=== PATIENT | female | born 1965 | race Caucasian/White ===

== ENCOUNTER 2023-08-13 03:50 | Outpatient (CLI) | payer BC, SELFPAY ==
[2023-08-13 18:05] LABS: TSH 1.87 uIU/mL (0.36-3.74)
== END 2023-08-13 03:51 | disposition home or self-care (01) ==
LOC: LBO 03:51
PROVIDERS: PCP Nurse Practitioner Family; Visit Provider Internal Medicine
DX: E03.9 Hypothyroidism, unspecified (principal)
CPT/HCPCS: 36415; 84443

== ENCOUNTER 2024-09-01 03:04 | Outpatient (CLI) | payer BC, SELFPAY ==
[2024-09-01 09:44] LABS: ALT 45 U/L (14-59); AST 17 U/L (15-37); Alkaline Phosphatase 69 U/L (46-116); Anion Gap 10.9 mmol/L (3-11); BUN 20 mg/dL (7-18); Bilirubin, Total 0.58 mg/dL (0.2-1.0); CO2 28.1 mmol/L (21.0-32.0); Calcium 9.1 mg/dL (8.5-10.1); Calculated LDL 148 mg/dL (<100); Chloride 104 mmol/L (98-107); Cholesterol 232 mg/dL (<200); Estimated GFR 64.49 (mL/min/1.73m2); Glucose 111 mg/dL (74-106); HDL Cholesterol 49 mg/dL (40-60); Potassium 4.4 mmol/L (3.5-5.1); Sodium 143 mmol/L (136-145); TSH (W/Ref FT4) 6.65 uIU/mL (0.36-3.74); Total Protein 7.7 g/dL (6.4-8.2); Triglyceride 175 mg/dL (<150)
[2024-09-01 10:54] LABS: FREE T4 1.05 ng/dL (0.76-1.46)
[2024-09-01 20:11] LABS: HIV-1/2 Ag & Ab Screen Negative (Negative)
[2024-09-01 20:49] LABS: Hepatitis C Ab w Rflx HCV PCR Negative (Negative)
[2024-09-02 19:01] LABS: Lab Add On Test DONE
[2024-09-03 18:00] LABS: Thyroglobulin Antibody <15 U/mL (<=60)
== END 2024-09-01 03:05 | disposition home or self-care (01) ==
PROVIDERS: PCP Nurse Practitioner Family; Visit Provider Nurse Practitioner Family
DX: Z11.59 Encounter for screening for other viral diseases (principal); Z11.4 Encounter for screening for human immunodeficiency virus [HIV]; E89.0 Postprocedural hypothyroidism; Z13.220 Encounter for screening for lipoid disorders; R73.9 Hyperglycemia, unspecified; R73.03 Prediabetes
CPT/HCPCS: 36415; 80053; 80061; 86803; 87389; 84439; 84443; 86800

== ENCOUNTER 2024-10-17 01:53 | Outpatient (CLI) | payer BC, SELFPAY ==
--- OUTSIDE RECORDS SUMMARY | 2024-10-17 02:00 | XMS_ITS | Encounter Summary ---
Author Organization [facility] [place] [address] Care Team Providers Care Nonprofit Manager Name Role Phone None Primary Care Provider Unavailabl e Encounter Details Date Type Department Care Team (Latest Contact Info) Description 02/23/2023 Travel Social History Tobacco Use Types Packs/Day Years Used Date Smoking Tobacco: Former Cigarettes Q uit: 1998 Smokeless Tobacco: Never Alcohol Use Standard Drinks/Week Comments Yes 0 (1 standard drink = 0.6 oz pur e alcohol) nightly glass of wine Sex and Gender Information Value Date Recorded Sex Assigned at Not on file Gender Identity Not on file Sexual Orientation Not on file documented as of this encounter Plan of Treatment Not on file documented as of this encounter Visit Diagnoses Not on filedocumented in this encounter Care Teams Nonprofit Manager Relationship Specialty Start Date End Date None None PCP - General 12/23/20 07/10/23 documented as of this encounter
--- OUTSIDE RECORDS SUMMARY | 2024-10-17 02:00 | XMS_ITS | Encounter Summary ---
Author Organization [facility] [place] [address] Care Team Providers Care Commercial Ocean Clammer Name Role Phone Clint Alva DNP Primary Care Provider [phone] Reason for Visit * Reason Comments Medication Refill Encounter Details Date Type Department Care Team (Late st Contact Info) Description 02/22/2024 Refill [place] [address] Pako Venegas MD [facility] [place] [address] Social History Tobacco Use Types Packs/Day Years [...] on filedocumented in this encounter Care Teams Commercial Ocean Clammer Relationship Specialty Start Date End Date Clint Alva DNP [address] [place], [place] [address] PCP - General Family Medicine 07/11/23 documented as of this encounter
--- OUTSIDE RECORDS SUMMARY | 2024-10-17 02:00 | XMS_ITS | Encounter Summary ---
Author Organization [facility] [place] [address] Care Team Providers Care Electrician Helper Powerhouse Name Role Phone None Primary Care Provider Unavailabl e Encounter Details Date Type Department Care Team (Late st Contact Info) Description 07/12/2021 Telephone [place] [phone] Mary Degroot RN Social History Tobacco Use Types Packs/Day Years [...] on file documented as of this encounter Miscellaneous Notes * Telephone Encounter - Mary Degroot RN - 07/12/2021 4:23 PM EDT Electronically routed lab order to [facility] per pt request to fax number [phone]. documented in this encounter Plan of Treatment Not on file documented as of this encounter Visit Diagnoses Not on filedocumented in this encounter Care Teams Electrician Helper Powerhouse Relationship Specialty Start Date End Date None None PCP - General 12/23/20 07/10/23 documented as of this encounter
--- OUTSIDE RECORDS SUMMARY | 2024-10-17 02:00 | XMS_ITS | Clinical Summary ---
Author Organization [facility] [place] [address] Care Team Providers Care Auditor Internal Name Role Phone NidaClint moran Bintakiana JAMEE Primary Care Provider [phone] Allergies No known active allergies Medications Medication Sig Dispensed Refills Start Date End Date Status multivitamin Tablet, Chewable Take 1 tablet by mouth as needed. Active lactobacillus rhamnosus, GG, (CULTURELLE) 10 billion cell Capsule Take 1 capsule by mouth daily. Active levothyroxine (Synthroid) 100 mcg tablet Take 1 tablet by mouth daily. 90 tablet 3 02/28/2023 Active Active Problems No known active problems Family History Medical History Relation Comments Thyroid Disease Sister Relation Status Comments Sister Social History Tobacco Use Types Packs/Day Years Used Date Smoking Tobacco: Former Cigarettes Q uit: 1998 Smokeless Tobacco: Never Alcohol Use Standard Drinks/Week Comments Yes 0 (1 standard drink = 0.6 oz pur e alcohol) nightly glass of wine Sex and Gender Information Value Date Recorded Sex Assigned at Not on file Gender Identity Not on file Sexual Orientation Not on file Last Filed Vital Signs Vital Sign Reading Time Taken Comments Blood Pressure 142/73 02/23/2023 1:17 PM EDT Pulse 88 02/23/2023 1:17 PM EDT Temperature 36 ??C (96.8 ??F) 02/23/2023 1:17 PM EDT Respiratory Rate 99 02/23/2023 1:17 PM EDT Oxygen Saturation 100% 12/23/2020 10:55 AM EST Inhaled Oxygen Concentration - - Weight 80.5 kg (177 lb 6.4 oz) 02/23/2023 1:17 P M EDT Height 160 cm (5' 3) 02/23/2023 1:17 PM EDT Body Mass Index 31.42 02/23/2023 1:17 PM EDT Plan of Treatment Health Maintenance Due Date Last Done Comments CT Colonography 1964 Colonoscopy 1964 Colorectal Cancer Screening 1964 FIT DNA 1964 FIT 1964 Sigmoidoscopy (10 year) with FIT yearly 1964 Sigmoidoscopy 1964 HIV screen 1982 Hepatitis C Screening 1982 Lipid Screening 1982 Tetanus/Diphtheria/Pertussis Vaccines (1 - Tdap) 05/14 HPV test 1994 PAP Smear 1994 Breast Cancer Share Decision Needed 2004 Breast Cancer screening 2004 Diabetes Screening (HgbA1C or Glucose) 2004 Zoster vaccine (1 of 2) 2014 Advance Directive 2019 Covid-19 Vaccine (1 - season) 2024 Influenza (Flu) vaccine (1 o f 1 - Influenza standard series) 06/22/2024 Care Teams Auditor Internal Relationship Specialty Start Date End Date Clint Alva DNP [address] [place] [address] PCP - General Family Medicine 07/11/23
--- OUTSIDE RECORDS SUMMARY | 2024-10-17 02:00 | XMS_ITS | Encounter Summary ---
Author Organization [facility] Address [address] [place] [address] Care Team Providers Care Operations Expert Name Role Phone Unavailable Primary Care Provider Unavailabl e Encounter Details Date Type Department Care Team (Late st Contact Info) Description 09/01/2024 Lab Requisition [facility] Pathology & Laboratory Medicine - [facility] [address] [place] [address] Outr Resulting Lab, Provider Social History Tobacco Use Types Packs/Day Years Used Date Smoking Tobacco: Never Assessed Comments Unknown Sex and Gender Information Value Date Recorded Sex Assigned at Not on file Legal Sex Female 12:25 EST Gender Identity Not on file Sexual Orientation Not on file documented as of this encounter Plan of Treatment Not on file documented as of this encounter Procedures Procedure Name Priority Date/Time Associated Diagnosis Comments HIV 1/2 ANTIGEN AND ANTIBODY, 4TH GENERATION Routine 09/01/2024 9:02 EST documented in this encounter Results * HIV 1/2 ANTIGEN AND ANTIBODY, 4TH GENERATION (09/01/2024 9:02 EST) HIV 1 and 2 Antibody/p24 Antigen, 4th Generation Negative Negative 09/01/2024 20:06 EST [facility] Comment:If acute HIV-1 infec tion is suspected in a high risk patient, submit plasma specimen for HIV-1 RNA quantitation test. Blood VENOUS BLOOD / Unknown 09/01/2024 9:02 EST 09/01/2024 17:17 EST Narrative [facility] - 09/01/2024 20:06 EST Fourth Generation assay performed on the Siemens Centaur XPT. us Provider Outr Resulting Lab IMMUNOLOGY AND SEROL OGY ORDERABLES Final Result [facility] [address] [place] [address] documented in this encounter Visit Diagnoses Not on filedocumented in this encounter
--- OUTSIDE RECORDS SUMMARY | 2024-10-17 02:00 | XMS_ITS | Clinical Summary ---
Author Organization [facility] Address [address] [place] [address] Care Team Providers Care Director Of Infection Prevention Name Role Phone Unavailable Primary Care Provider Unavailabl e Encounters Date Type Department Care Team Description 09/03/2024 Lab Requisition [facility] Pathology & Laboratory [address] [address] Outr Resulting Lab, Provider 09/01/2024 Lab Requisition [facility] Pathology Laboratory [address] [address] Outr Resulting Lab, Provider 09/01/2024 Lab Requisition [facility] Pathology & Laboratory [address] [address] Outr Resulting Lab, Provider from Last 3 Months Social History Tobacco Use Types Packs/Day Years Used Date Smoking Tobacco: Never Assessed Comments Unknown Sex and Gender Information Value Date Recorded Sex Assigned at Not on file Legal Sex Female 12:25 EST Gender Identity Not on file Sexual Orientation Not on file Plan of Treatment Health Maintenance Due Date Last Done Comments COVID-19 Vaccine ( season) 2024 RSV Immunization ( o r 60+ Years) (1 - 1-dose 75+ series) 2039 Hepatitis C Screen Completed 09/01/2024 Procedures Procedure Name Priority Date/Time Associated Diagnosis Comments ANTI THYROGLOBULIN Routine 09/01/2024 9: 02 EST HEPATITIS C AB W REFLEX TO HCV RNA BY PCR Routine 09/01/2024 9:02 EST HIV 1/2 ANTIGEN AND ANTIBODY, 4TH GENERATION Routine 09/01/2024 9:02 EST from Last 3 Months Results * HEPATITIS C AB W REFLEX TO HCV RNA BY PCR (09/01/2024 9:02 EST) Hep C Antibody Negative Negative 09/01/2024 20:44 EST [facility] Blood VENOUS BLOOD / Unknown 09/01/2024 9:02 EST 09/01/2024 17:17 EST us Provider Outr Resulting Lab CHEMISTRY & BLOOD GA S ORDERABLES Final Result [facility] [address] [place] [address] * ANTI THYROGLOBULIN (09/01/2024 9:02 EST) Anti-Thyroglob ulin <15 <=60 U/mL 09/03/2024 17:55 EST [facility] Blood VENOUS BLOOD / Unknown 09/01/2024 9:02 EST 09/03/2024 16:59 EST us Provider Outr Resulting Lab CHEMISTRY & BLOOD GA S ORDERABLES Final Result Performing Organization Address City/[facility]/ZIP Co de Phone Number [facility] [address] [place] [address] * HIV 1/2 ANTIGEN AND ANTIBODY, 4TH GENERATION (09/01/2024 9:02 EST) HIV 1 and 2 Antibody/p24 Antigen, 4th Generation Negative Negative 09/01/2024 20:06 EST [facility] Comment:If acute HIV-1 infec tion is suspected in a high risk patient, submit plasma specimen for HIV-1 RNA quantitation test. Blood VENOUS BLOOD / Unknown 09/01/2024 9:02 EST 09/01/2024 17:17 EST Narrative [facility] - 09/01/2024 20:06 EST Fourth Generation assay performed on the Siemens Centaur XPT. us Provider Outr Resulting Lab IMMUNOLOGY AND SEROL OGY ORDERABLES Final Result [facility] [address] [place], [place] [id number] from Last 3 Months
--- OUTSIDE RECORDS SUMMARY | 2024-10-17 02:00 | XMS_ITS | Encounter Summary ---
Author Organization [place] [address] Care Team Providers Care Shop Girl Name Role Phone None Primary Care Provider Unavailabl e Encounter Details Date Type Department Care Team (Latest Contact Info) Description 02/16/2023 Travel Social History Tobacco Use Types Packs/Day [...] on filedocumented in this encounter Care Teams Shop Girl Relationship Specialty Start Date End Date None None PCP - General 12/23/20 07/10/23 documented as of this encounter
--- OUTSIDE RECORDS SUMMARY | 2024-10-17 02:00 | XMS_ITS | Encounter Summary ---
Author Organization [facility] Address [facility] [place] [address] Care Team Providers Care Life Insurance Underwriter Name Role Phone None Primary Care Provider Unavailabl e Encounter Details Date Type Department Care Team (Late st Contact Info) Description 02/23/2023 1:45 PM EDT Office [place] [phone] Pako Venegas MD [facility] [place] [address] Hypothyroidism, unspecified type; History of thyroid cancer Social History Tobacco Use Types Packs/Day Years [...] on file documented as of this encounter Last Filed Vital Signs Vital Sign Reading Time Taken Comments Blood Pressure 142/73 02/23/2023 1:17 PM EDT Pulse 88 02/23/2023 1:17 PM EDT Temperature 36 ??C (96.8 ??F) 02/23/2023 1:17 PM EDT Respiratory Rate 99 02/23/2023 1:17 PM EDT Oxygen Saturation - - Inhaled Oxygen Concentration - - Weight 80.5 kg (177 lb 6.4 oz) 02/23/2023 1:17 P M EDT Height 160 cm (5' 3) 02/23/2023 1:17 PM EDT Body Mass Index 31.42 02/23/2023 1:17 PM EDT documented in this encounter Progress Notes * Pako Venegas MD - 02/23/2023 1:45 PM EDT Ms. Jaquelin Colunga is an 57 y.o. female who presents in followup for papillary thyroid cancer she has a history of multifocal PTC, status post thyroidectomy in 2013 and on levothyroxine replacement. She did not receive I-131 ablation Last saw me December 2020 Notable events in her thyroid cancer history: - Jul 2014 underwent thyroidectomy for multinodular goiter, FNA of one nodule had shown FLUS prior to this. Path: follicular variant PTC, two foci 0.7 cm and 0.3 cm. No vascular or lymphatic invasion, no ETE, negative margins. No LN submitted - March 2019: thyroid US no evidence of recurrence - December 2020 US neck (Theo): no evidence of recurrence Last Thyroglobulin in 2020 was undetectable Interval history: Today she tells me that she feels well. She has some fatigue but it is generally only at the end ofa long day of work. She denied unexplained weight loss, palpitations, tremors or throat pain. She takes levothyroxine 112 mcg daily Notably she does not have a PCP. She occasionally goes to her local health center when tests are needed Current Outpatient Medications: ??? levothyroxine (Synthroid) 112 mcg Tablet, Take 1 tablet by mouth daily., Disp: 60 tablet, Rfl: 5 has a past medical history of GERD (gastroesophageal reflux disease), Postoperative hypothyroidism,and Thyroid cancer. Past Surgical History: Procedure Laterality Date ??? CHOLECYSTECTOMY ??? HYSTERECTOMY ??? THYROIDECTOMY Physical Exam: Patient Vitals for the past 24 hrs: Temp Pulse Resp BP 02/23/23 1317 36 ??C (96.8 ??F) 88 (!) 99 142/73 General: no acute distress, pleasant, sitting comfortably Face: not round or red Eyes: no lid lag; normal eye movements Nose/mouth: Nose not enlarged, mucous membranes moist Neck: no supraclavicular fat pads; no palpable thyroid nodules or neck masses Lymphatic: no palpable cervical lymph nodes, no palpable supraclavicular lymph nodes Respiratory: symmetrical chest expansion, breathing comfortably on room air without audible wheeze or stridor Musculoskeletal: moving all 4 extremities normally; normal female musculature Skin: normal temperature/texture, no jaundice or pallor visible, well healed surgical scar Neurological: no tremors, normal gait Psychological: alert/oriented to person, place, time; normal affect; memory intact; normal judgement/insight Radiology Studies: Laboratory Data: Component Latest Ref Rng 12/23/2020 Thyroglobulin <=54.9 ng/mL <0.2 Thyroglob Ab 0.0 - 40.0 IU/mL <20.0 TSH 0.27 - 4.20 mcIU/mL 6.44 (H) (H) High Assessment / Plan: 1) history of papillary thyroid cancer -status post thyroidectomy - pT1a, NX, MX No evidence of recurrence given undetectable thyroglobulin and no abnormalities on US including last time it was done in 2020 Consider repeat thyroglobulin check every 2 years in accordance with HUNG guidelines. This could be done by primary care 2) postoperative hypothyroidism TSH goal normal Up to 2.0 as long as excellent response to therapy Discussed that there is probably little benefit at this point to any TSH suppression given that herthyroid cancer recurrence risk is so low. However it is reasonable to keep it normal up To mid normal (around 2.0) range. She does not currently have a PCP. I strongly recommended she establish with one locally. It is appropriate for her to followup with primary care with yearly TSH check and thyroglobulin every other year. I recommend she return to endocrinology if the Thyroglobulin is ever detectable in the future Orders Placed This Encounter Procedures ??? TSH ??? Thyroglobulin Pako Venegas MD Live Out Nannyprocessing analyst Endocrinology Section [facility] \ documented in this encounter Plan of Treatment Not on file documented as of this encounter Procedures Procedure Name Priority Date/Time Associated Diagnosis Comments THYROGLOBULIN Routine 02/23/2023 2:26 PM EDT History of thyroid cancer TSH Routine 02/23/2023 2:26 PM EDT Hypothyroidism, unspecified type documented in this encounter Results * (ABNORMAL) Thyroglobulin (02/23/2023 2:26 PM EDT) Thyroglobulin <0.1(L) 1.3 - 31.8 ng/mL [facility] Comment: INTERPRETIVE INFORMATION: Thyroglobulin, Serum or Plasma Specimens negative for thyroglobulin antibodies (TgAb) are tested for thyroglobulin (Tg) by chemiluminescent immunoassay (MÓNICA) using the Yam[employer] Orient Access DxI method. Specimens with TgAb results above the upper reference limit are tested for Tg by high-performance liquid chromatography-tandem mass spectrometry (LC-MS/MS). Results obtained with different test methods or kits cannot be used interchangeably. Tg results, regardless of concentration, should not be interpreted as absolute evidence for the presence or absence of papillary or follicular thyroid cancer. Tg testing is not recommended for use as a screening procedure to detect the presence of thyroid cancer in the general population. Thyroglob Ab <0.9 0.0 - 4.0 IU/mL [facility] Comment: INTERPRETIVE INFORMATION: Thyroglobulin Antibody A value of 4.0 IU/mL or less indicates a negative result for thyroglobulin antibodies. The Thyroglobulin Antibody assay is being performed using the Yamil Orient Access DxI method. Please note that as 07/19/22 this testing is performed at [facility]. This change is associated with a change in testing method and reference intervals. Values from other methods may not correlate with this method. Please review the results of this test in assocaition with the posted reference intervals. Thyroglobulin by LC-MS/MS Not Applicable 1.3 - 31.8 ng/mL [facility] Comment: INTERPRETIVE INFORMATION: Thyroglobulin by LC-MS/MS, Serum/Plasma Lower limit of detection for Thyroglobulin by LC-MS/MS is 0.5 ng/mL. This test was developed and its performance characteristics determined by [facility]. It has not been cleared or approved by the [place] Food and Drug Administration. This test was performed in a CLIA certified laboratory and is intended for clinical purposes. Performed By: [facility] [address] [place] [id number] [place] Miller: Adelso Toledo MD, PhD Blood 02/23/2023 2:26 PM EDT 02/26/2023 9:16 AM EDT Narrative Resulting Agency Comment Spec In Lab Pako Venegas MD LAB SEND OUT ORDERA BLES Performing Organization Address [facility] Co de Phone Number [facility] [place] [address] * (ABNORMAL) TSH (02/23/2023 2:26 PM EDT) Thyroid Stimulating Hormone 0.13(L) 0.27 - 4.20 mcIU/mL [facility] Comment: Reference Interval (mcIU/mL): Females: ??First Trimester: 0.23-3.88 ??Second Trimester: 0.22-3.90 ??Third Trimester: 0.44-4.66 Blood 02/23/2023 2:26 PM EDT 02/23/2023 2:31 PM EDT Narrative Resulting Agency Comment Spec In Lab Pako Venegas MD CHEMISTRY ORDERABLE S Performing Organization Address [facility] Co de Phone Number [facility] [place] [address] documented in this encounter Visit Diagnoses Diagnosis Hypothyroidism, unspecified type History of thyroid cancer Personal history of malignant neoplasm of thyroid documented in this encounter Care Teams Life Insurance Underwriter Relationship Specialty Start Date End Date None None PCP - General 12/23/20 07/10/23 documented as of this encounter
--- OUTSIDE RECORDS SUMMARY | 2024-10-17 02:00 | XMS_ITS | Encounter Summary ---
Author Organization [facility] [place] [address] Care Team Providers Care Aluminum Welder Name Role Phone Clint Alva DNP Primary Care Provider Reason for Visit * Reason Comments Medication Refill Encounter Details Date Type Department Care Team (Late st Contact Info) Description 02/18/2024 Refill [place] [address] Pako Venegas MD [facility] [place] [address] Social History Tobacco Use Types Packs/Day Years [...] on filedocumented in this encounter Care Teams Aluminum Welder Relationship Specialty Start Date End Date Clint Alva DNP [address] [place], [place] [address] PCP - General Family Medicine 07/11/23 documented as of this encounter
--- OUTSIDE RECORDS SUMMARY | 2024-10-17 02:00 | XMS_ITS | Encounter Summary ---
Author Organization [facility] Address [facility] [place] [address] Care Team Providers Care User Experience Lead Name Role Phone None Primary Care Provider Unavailabl e Reason for Visit * Consultation (Routine) - Specialty Diagnoses / Procedures Referred By Contac t Referred To Contact Endocrinology [place] [address] [place] [address] Pako Venegas MD [facility] [place] [address] Referral ID Status Reason Start Date Expiration Date V isits Requested Visits Authorized [id number] Consult, Test & Treat Connection Center PCP Updated and/or Approved 11/16/2020 05/16/2021 6 6 Encounter Details Date Type Department Care Team (Latest Contact Info) Description 12/23/2020 11:00 AM EST Office Visit [place] [address] Pako Venegas MD [facility] [place] [address] Postoperative hypothyroidism; History of thyroid cancer Social History Tobacco [...] Sign Reading Time Taken Comments Blood Pressure 136/73 12/23/2020 10:55 AM EST Pulse 66 12/23/2020 10:55 AM EST Temperature 36.6 ??C (97.9 ??F) 12/23/2020 1 0:55 AM EST Respiratory Rate - - Oxygen Saturation 100% 12/23/2020 10: 55 AM EST Inhaled Oxygen Concentration - - Weight 74.8 kg (164 lb 12.8 oz) 021 10:55 AM EST Height 160 cm (5' 3) 12/23/2020 10:55 AM EST Body Mass Index 29.19 12/23/2020 10:55 AM EST documented in this encounter Patient Instructions * Patient Instructions* Pako Venegas MD - 12/23/2020 11:00 AM EST I recommend signing up for [facility] documented in this encounter Progress Notes * Pako Venegas MD - 12/23/2020 11:00 AM EST Ms. Jaquelin Colunga is an 55 y.o. female who presents in consultation for chief complaint of history of papillary thyroid cancer Referred by: Ba Moya MD Acquisition, Review and Summation of Old Medical Records: I reviewed notes from her previous endocrinology practice and in my review I saw that she has a history of multifocal PTC, status post thyroidectomy in 2013 and on levothyroxine replacement. She did not receive I-131 ablation Notable events in her thyroid cancer history: - Jul 2014 underwent thyroidectomy for multinodular goiter, FNA of one nodule had shown FLUS prior to this. Path: follicular variant PTC, two foci 0.7 cm and 0.3 cm. No vascular or lymphatic invasion, no ETE, negative margins. No LN submitted - March 2019: thyroid US no evidence of recurrence HPI: Patient confirms the history stated above. She tells me that multiple thyroid nodules were discovered in 2013 and based on a suspicious biopsy she proceeded to total thyroidectomy. [facility], and had the surgery performed at [facility]. She was followed until now by application analyst in [place] Dr Moya. Just after the surgery, she tells me that she had some issues with hypocalcemia but they resolved within a few weeks and she no longerneeds standing calcium. She had hoarseness just after the surgery but resolved quickly. She does occasionally take TUMS for GERD which is her only other medical problem Generally, she feels well other than some fatigue that occurs mostly in the evening. She has no swallowing trouble or sensation of neck mass Denies history of head/neck radiation She takes levothyroxine (generic) 88 mcg daily except 1.5 tabs on Sunday. 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 No known family history of thyroid cancer Review of Systems: As described above, otherwise it is negative Current Outpatient Medications: ??? levothyroxine (Synthroid) 88 mcg Tablet, 88 mcg daily. 88mcg daily and on Sun 1 and a half tabs, Disp: , Rfl: has a past medical history of GERD (gastroesophageal reflux disease) and Thyroid cancer. Past Surgical History: Procedure Laterality Date ??? CHOLECYSTECTOMY ??? HYSTERECTOMY ??? THYROIDECTOMY Physical Exam: Patient Vitals for the past 24 hrs: Temp Pulse BP SpO2 12/23/20 1055 36.6 ??C (97.9 ??F) 66 136/73 100 % General: no acute distress, pleasant, sitting comfortably Face: not round or red Eyes: no lid lag; normal eye movements Nose/mouth: Nose not enlarged, mucous membranes moist Neck: no supraclavicular fat pads; no palpable thyroid nodules or neck masses Lymphatic: no palpable cervical lymph nodes, no palpable supraclavicular lymph nodes Respiratory: symmetrical chest expansion, breathing comfortably on room air without audible wheeze or stridor Cardiovascular: no JVD, no LE edema Musculoskeletal: moving all 4 extremities normally; normal female musculature Skin: normal temperature/texture, no jaundice or pallor visible Neurological: no tremors, normal gait Psychological: alert/oriented to person, place, time; normal affect; memory intact; normal judgement/insight Radiology Studies: Laboratory Data: 04/07/19 TSH 2.2 Tg <0.1 Tg Ab <1 Assessment / Plan: 1) history of papillary thyroid cancer -status post thyroidectomy - pT1a, NX, MX Excellent response to therapy thus far from prior records and no evidence of recurrence today We discussed that at this point, the risk of recurrence is extremely low Check Thyroglobulin today, if stable then check every other year Consider repeat US in 3-5 years 2) postoperative hypothyroidism TSH goal 0.5-2.0 as long as excellent response to therapy Check TSH today She should have TSH checked yearly. She will ask her PCP to check this in one year. She is still looking for a PCP in this area and will let me know if she needs me to send in a lab slip at that time She needs a new Rx for her levothyroxine and I will send this in after the labs result A note will be sent to the referring provider Return to clinic in 2 years with US Orders Placed This Encounter Procedures ??? Thyroglobulin ??? TSH It was a pleasure to be involved in the care of Jaquelin Colunga. If you have any questions about the management and treatment plan as outlined above, or if I can be of further assistance, please do not hesitate to contact me. Sincerely, Pako Venegas MD Apparel Sales Associatedirector of community education Endocrinology Section [facility] * Pako Venegas MD - 12/23/2020 11:00 AM EST ENDOCRINOLOGY THYROID ULTRASOUND REPORT Patient:Jaquelin Colunga, [id number] Date of exam: 12/23/2020 Indication: history of thyroid cancer Comparison: March 2019 outside ultrasound Performed by: Pako Venegas MD Real time images of the thyroid gland were obtained using a BK US machine. All measurements are given as Longitudinal/Sagittal x AP x Transverse. Right Neck: Thyroid is surgically absent No abnormal lymph nodes Left Neck: Thyroid is surgically absent No abnormal lymph nodes Impression: No evidence of thyroid cancer recurrence documented in this encounter Plan of Treatment Not on file documented as of this encounter Procedures Procedure Name Priority Date/Time Associated Diagnosis Comments HC THYROGLOBULIN Routine 12/23/2020 11:3 9 AM EST History of thyroid cancer HC VENIPUNCTURE Routine 12/23/2020 11:39 AM EST Postoperative hypothyroidism documented in this encounter Results * (ABNORMAL) TSH (12/23/2020 11:39 AM EST) Thyroid Stimulating Hormone 6.44(H) 0.27 - 4.20 mcIU/mL [facility] Blood specimen (specimen) 12/23/2020 11:39 AM EST 12/23/2020 11:52 AM EST Narrative Resulting Agency Comment Spec In Lab Pako Venegas MD CHEMISTRY ORDERABLE S Performing Organization Address [facility] Co de Phone Number [facility] [place] [address] * Thyroglobulin (12/23/2020 11:39 AM EST) Thyroglobulin <0.2 <=54.9 ng/mL [facility] Thyroglob Ab <20.0 0.0 - 40.0 IU/mL [facility] Blood specimen (specimen) 12/23/2020 11:39 AM EST 12/23/2020 3:00 PM EST Narrative Resulting Agency Comment Spec In Lab Pako Venegas MD LAB SEND OUT ORDERA BLES Performing Organization Address [facility] Co de Phone Number [facility] [place] [address] documented in this encounter Visit Diagnoses Diagnosis Postoperative hypothyroidism Postsurgical hypothyroidism History of thyroid cancer Personal history of malignant neoplasm of thyroid documented in this encounter Care Teams User Experience Lead Relationship Specialty Start Date End Date None None PCP - General 12/23/20 07/10/23 documented as of this encounter
--- OUTSIDE RECORDS SUMMARY | 2024-10-17 02:00 | XMS_ITS | Encounter Summary ---
Author Organization [facility] Address [address] [place] [address] Care Team Providers Care Electric Transfer Operator Name Role Phone Unavailable Primary Care Provider Unavailabl e Encounter Details Date Type Department Care Team (Late st Contact Info) Description 09/01/2024 Lab Requisition [facility] Pathology & Laboratory Medicine - [facility] [address] [place] [address] Outr Resulting Lab, Provider Social History Tobacco [...] Procedure Name Priority Date/Time Associated Diagnosis Comments HEPATITIS C AB W REFLEX TO HCV RNA BY PCR Routine 09/01/2024 9:02 EST documented in this encounter Results * HEPATITIS C AB W REFLEX TO HCV RNA BY PCR (09/01/2024 9:02 EST) Hep C Antibody Negative Negative 09/01/2024 20:44 EST [facility] Blood VENOUS BLOOD / Unknown 09/01/2024 9:02 EST 09/01/2024 17:17 EST us Provider Outr Resulting Lab CHEMISTRY & BLOOD GA S ORDERABLES Final Result [facility] [address] [place], [place] [id number] documented in this encounter Visit Diagnoses Not on filedocumented in this encounter
--- OUTSIDE RECORDS SUMMARY | 2024-10-17 02:00 | XMS_ITS | Referral Summary ---
Author Organization [facility] Address [address] [place] [address] Care Team Providers Care Utility Worker [place] Name Role Phone Unavailable Primary Care Provider Unavailabl e Encounters Date Type Department Care Team Description 09/03/2024 Lab Requisition [facility] Pathology & Laboratory [address] [address] Outr Resulting Lab, Provider 09/01/2024 Lab Requisition [facility] Pathology Laboratory [address] [address] Outr Resulting Lab, Provider 09/01/2024 Lab Requisition [facility] Pathology & Laboratory [address] [address] Outr Resulting Lab, Provider from Last 3 Months Social History Tobacco Use Types Packs/Day Years Used Date Smoking Tobacco: Never Assessed Comments Unknown Sex and Gender Information Value Date Recorded Sex Assigned at Not on file Legal Sex Female 12:25 EST Gender Identity Not on file Sexual Orientation Not on file Plan of Treatment Not on file Procedures Procedure Name Priority Date/Time Associated Diagnosis [...] C Antibody Negative Negative 09/01/2024 20:44 EST [facility] Blood VENOUS BLOOD / Unknown 09/01/2024 9:02 EST 09/01/2024 17:17 EST us Provider Outr Resulting Lab CHEMISTRY & BLOOD GA S ORDERABLES Final Result [facility] [address] [place], [place] [id number] * ANTI THYROGLOBULIN (09/01/2024 9:02 EST) Anti-Thyroglob ulin <15 <=60 U/mL 09/03/2024 17:55 EST [facility] Blood VENOUS BLOOD / Unknown 09/01/2024 9:02 EST 09/03/2024 16:59 EST us Provider Outr Resulting Lab CHEMISTRY & BLOOD GA S ORDERABLES Final Result Performing Organization Address [facility] de Phone Number [facility] [address] [place] [phone] * HIV 1/2 ANTIGEN AND ANTIBODY, 4TH GENERATION (09/01/2024 9:02 EST) HIV 1 and 2 Antibody/p24 Antigen, 4th Generation Negative Negative 09/01/2024 20:06 EST [facility] Comment:If acute HIV-1 infec tion is suspected in a high risk patient, submit plasma specimen for HIV-1 RNA quantitation test. Blood VENOUS BLOOD / Unknown 09/01/2024 9:02 EST 09/01/2024 17:17 EST Narrative [facility] - 09/01/2024 20:06 EST Fourth Generation assay performed on the Siemens Centaur XPT. us Provider Outr Resulting Lab IMMUNOLOGY AND SEROL OGY ORDERABLES Final Result Performing Organization Address City/[facility]/ZIP Co de Phone Number [facility] [address] [place] [address] from Last 3 Months
--- OUTSIDE RECORDS SUMMARY | 2024-10-17 02:00 | XMS_ITS | Encounter Summary ---
Author Organization [facility] Address [address] [place] [address] Care Team Providers Care Mail Examiner Name Role Phone Unavailable Primary Care Provider Unavailabl e Encounter Details Date Type Department Care Team (Late st Contact Info) Description 09/03/2024 Lab Requisition [facility] Pathology & Laboratory Medicine - [facility] [address] [place] [address] Outr Resulting Lab, Provider Social History Tobacco [...] Associated Diagnosis Comments ANTI THYROGLOBULIN Routine 09/01/2024 9:02 EST documented in this encounter Results * ANTI THYROGLOBULIN (09/01/2024 9:02 EST) Anti-Thyroglob ulin <15 <=60 U/mL 09/03/2024 17:55 EST [facility] Blood VENOUS BLOOD / Unknown 09/01/2024 9:02 EST 09/03/2024 16:59 EST us Provider Outr Resulting Lab CHEMISTRY & BLOOD GA S ORDERABLES Final Result [facility] [address] [place] [address] documented in this encounter Visit Diagnoses Not on filedocumented in this encounter
[2024-10-17 08:27] LABS: HCT 45.3 % (36.0-46.0); HGB 15.3 g/dL (11.2-15.7); MCH 29.3 pg (27.0-33.0); MCHC 33.8 % (32.0-36.0); MCV 87 fL (80-95); MPV 9.1 fL (8.0-11.0); Platelet Count 265 10^3/uL (130-400); RBC 5.22 10^6/uL (3.93-5.22); RDW 12.5 % (11.7-14.6); RDW-SD 39.8 fL; WBC 8.89 10^3/uL (4.4-10.8)
[2024-10-17 08:58] LABS: TSH (W/Ref FT4) 0.41 uIU/mL (0.36-3.74)
== END 2024-10-17 01:54 | disposition home or self-care (01) ==
PROVIDERS: PCP Nurse Practitioner Family; Visit Provider Nurse Practitioner Family
DX: E89.0 Postprocedural hypothyroidism (principal); Z83.2 Family history of diseases of the blood and blood-forming organs and certain disorders involving the immune mechanism
CPT/HCPCS: 36415; 85027; 84443

== ENCOUNTER 2025-09-01 00:44 | Outpatient (CLI) | payer BC, SELFPAY ==
[2025-09-01 08:52] LABS: TSH (W/Ref FT4) 0.04 uIU/mL (0.36-3.74)
== END 2025-09-01 00:45 | disposition home or self-care (01) ==
LOC: LBO 00:44
PROVIDERS: PCP Nurse Practitioner Family; Visit Provider Nurse Practitioner Family
DX: E89.0 Postprocedural hypothyroidism (principal); C73 Malignant neoplasm of thyroid gland
CPT/HCPCS: 36415; 84439; 84443

== ENCOUNTER 2025-09-09 03:38 | Outpatient (CLI) | payer BC, SELFPAY ==
[2025-09-09 10:59] LABS: TSH (W/Ref FT4) 0.11 uIU/mL (0.55-4.78)
== END 2025-09-09 03:39 | disposition home or self-care (01) ==
PROVIDERS: PCP Nurse Practitioner Family; Visit Provider Nurse Practitioner Family
DX: E89.0 Postprocedural hypothyroidism (principal)
CPT/HCPCS: 36415; 84439; 84443

== ENCOUNTER 2025-09-21 14:56 | Outpatient (REF) | payer BC, SELFPAY ==
--- NOTE | 2025-09-21 14:53 | SKI_PTH ---
PATIENT: Jaquelin Colunga LOC: [facility] U#:[id number] AGE/SX: 60/F ROOM: RE09/21/[address]: Sandhya Cervantes : 1965 BED: DIS: 09/21/2025 SPEC #: [id number] RECD: 09/21/25 18:14 STATUS: VALERY REConnie #: [id number] THERON: 09/21/25 14:[address]: Sandhya Cervantes DEPT: Surgical Specimen RECD BY: Emely Dorman ENTERED: 09/21/25 18:14 SP TYPE: NELDA HURTADO DR: Clint Dunne, JAMEE Tissues: 1 - SKIN BIOPSY(SHAVE/PUNCH) Procedures: SKIN LEVEL 4 Comments: [id number]
== END 2025-09-21 14:57 | disposition home or self-care (01) ==
LOC: LBN 14:56
PROVIDERS: PCP Nurse Practitioner Family; Visit Provider Student in an Organized Health Care Education/Training Program
DX: D17.22 Benign lipomatous neoplasm of skin and subcutaneous tissue of left arm (principal)
CPT/HCPCS: 88305